=== PATIENT | female | born 1960 | race Caucasian/White ===

== ENCOUNTER 2018-09-12 21:33 | Emergency (ER) | payer OTHER ==
[2018-09-12] MEDS: FAMOTIDINE 20 MG TAB PO (22:58)
[2018-09-12] MEDS: CYCLOBENZAPRINE 10 MG TAB PO (22:58)
[2018-09-12] MEDS: KETOROLAC 30 MG INJ IM (23:01)
[2018-09-13] MEDS: NICARDipine HCL 30 MG CAPSULE PO (00:04)
[2018-09-13] MEDS: HYDROCODONE/APAP (5/325) TAB PO (00:04)
== END 2018-09-13 00:15 | disposition home or self-care (01) ==
LOC: FTE 21:33
DX: S10.93XA Contusion of unspecified part of neck, initial encounter (principal); S20.219A Contusion of unspecified front wall of thorax, initial encounter; S40.011A Contusion of right shoulder, initial encounter; V43.52XA Car driver injured in collision with other type car in traffic accident, initial encounter
CPT/HCPCS: 71046; 72040; 73030-RT; 96372; 99284-25

== ENCOUNTER 2018-10-20 12:48 | Inpatient (IN) | payer OTHER ==
[2018-10-20 14:23] LABS: ADD MAN DIFF? NO
[2018-10-20 14:24] LABS: WHITE BLOOD COUNT 9.3 10^3/ul (4.8-10.8)
[2018-10-20 14:24] LABS: BASOPHILS % 0.2 % (0.0-2.0); HEMATOCRIT 37.7 % (37.0-47.0); LYMPHOCYTES # 1.4 10^3/ul (0.8-2.9); LYMPHOCYTES % 15.1 % (15.0-51.0); MEAN CORPUSCULAR HEMOGLOBIN 26.9 pg (29.0-33.0); MEAN CORPUSCULAR HGB CONC 31.8 g/dl (32.0-37.0); MEAN CORPUSCULAR VOLUME 84.5 fl (82.0-101.0); MEAN PLATELET VOLUME 9.4 fl (7.4-10.4); MONOCYTE # 0.2 10^3/ul (0.3-0.9); MONOCYTES % 1.7 % (0.0-11.0); NEUTROPHIL # 7.7 10^3/ul (1.6-7.5); NEUTROPHILS % 82.5 % (39.0-77.0); PLATELET COUNT 313 10^3/UL (140-415); RED BLOOD COUNT 4.46 10^6/ul (4.20-5.40)
[2018-10-20] MEDS: ONDANSETRON 4 MG INJ IV (14:29)
[2018-10-20] MEDS: SOD CHLORIDE 0.9% 1,000 ML IV ×2 (14:29→19:57)
[2018-10-20] MEDS: LIDOCAINE/MYLANTA 40 ML BTL PO (14:29)
[2018-10-20] MEDS: BELLADONNA/PHENOBARBITAL TAB PO (14:29)
[2018-10-20] MEDS: KETOROLAC 15 MG INJ IV (14:37)
[2018-10-20 14:42] LABS: ALANINE AMINOTRANSFERASE 22 IU/L (13-69); ALBUMIN 4.6 g/dl (3.3-4.9); ALBUMIN/GLOBULIN RATIO 1.09; ALKALINE PHOSPHATASE 68 IU/L (42-121); ANION GAP 10 (5-13); ASPARTATE AMINO TRANSFERASE 24 IU/L (15-46); BILIRUBIN,INDIRECT 0.4 mg/dl (0-1.1); BILIRUBIN,TOTAL 0.4 mg/dl (0.2-1.3); BLOOD UREA NITROGEN 14 mg/dl (7-20); CALCIUM 10.3 mg/dl (8.4-10.2); CARBON DIOXIDE 27 mmol/L (21-31); CHLORIDE 103 mmol/L (97-110); CREATININE 0.69 mg/dl (0.44-1.00); Estimated GFR > 60 mL/min (>60); GLUCOSE 116 mg/dl (70-220); LIPASE 84 U/L (23-300); POTASSIUM 3.6 mmol/L (3.5-5.1); SODIUM 140 mmol/L (135-144); TOTAL PROTEIN 8.8 g/dl (6.1-8.1)
[2018-10-20] MEDS ORDERED: DOCUSATE SODIUM 100 MG CAP PO (18:30)
[2018-10-20] MEDS ORDERED: ACETAMINOPHEN 650 MG SUPP PR (18:30)
[2018-10-20] MEDS ORDERED: HYDROCODONE/APAP (5/325) TAB PO (18:30)
[2018-10-20] MEDS ORDERED: FAMOTIDINE 20 MG INJ IV (18:30)
[2018-10-20] MEDS ORDERED: ONDANSETRON 4 MG INJ IV (18:30)
[2018-10-20] MEDS ORDERED: NACL 0.9% 3 ML SYG IV (18:30)
[2018-10-20] MEDS ORDERED: ACETAMINOPHEN 325 MG TAB PO (18:30)
[2018-10-20] MEDS ORDERED: morphine 2 MG INJ IV (18:30)
[2018-10-20] MEDS ORDERED: BISACODYL 10 MG SUPP PR (18:30)
[2018-10-20] MEDS ORDERED: CIPROFLOXACIN 400MG/D5W 200 ML (19:35)
[2018-10-20] MEDS ORDERED: metroNIDAZOLE 500 MG/NS (PMX) 100 ML IVPB (19:35)
[2018-10-20] MEDS ORDERED: FAMOTIDINE 20 MG INJ (19:35)
[2018-10-20] MEDS: FAMOTIDINE 20 MG INJ IV (20:00)
[2018-10-20] MEDS: CIPROFLOXACIN 400MG/D5W 200 ML IVPB (20:02)
[2018-10-20] MEDS: metroNIDAZOLE 500 MG/NS (PMX) 100 ML IVPB (21:09)
[2018-10-21 05:06] LABS: ADD MAN DIFF? NO
[2018-10-21 05:11] LABS: BASOPHILS % 0.5 % (0.0-2.0); EOSINOPHILS # 0.1 10^3/ul (0.0-0.5); EOSINOPHILS % 1.7 % (0.0-7.0); HEMATOCRIT 32.6 % (37.0-47.0); HEMOGLOBIN 10.2 g/dl (12.0-16.0); LYMPHOCYTES # 2.8 10^3/ul (0.8-2.9); LYMPHOCYTES % 44.1 % (15.0-51.0); MEAN CORPUSCULAR HGB CONC 31.3 g/dl (32.0-37.0); MEAN CORPUSCULAR VOLUME 86.2 fl (82.0-101.0); MEAN PLATELET VOLUME 9.9 fl (7.4-10.4); MONOCYTE # 0.4 10^3/ul (0.3-0.9); MONOCYTES % 6.7 % (0.0-11.0); NEUTROPHILS % 46.8 % (39.0-77.0); PLATELET COUNT 249 10^3/UL (140-415); RED BLOOD COUNT 3.78 10^6/ul (4.20-5.40); RED CELL DISTRIBUTION WIDTH 14.3 % (11.5-14.5)
[2018-10-21 05:11] LABS: WHITE BLOOD COUNT 6.4 10^3/ul (4.8-10.8)
[2018-10-21 05:26] LABS: INR 1.03; PROTIME 13.6 Sec (11.9-14.9); PT RATIO 1.1
[2018-10-21 05:31] LABS: LIPASE 81 U/L (23-300)
[2018-10-21] MEDS: SOD CHLORIDE 0.9% 1,000 ML IV ×2 (05:39→12:28)
[2018-10-21] MEDS: metroNIDAZOLE 500 MG/NS (PMX) 100 ML IVPB (05:41)
[2018-10-21 05:42] LABS: ALANINE AMINOTRANSFERASE 19 IU/L (13-69); ALBUMIN 3.2 g/dl (3.3-4.9); ALBUMIN/GLOBULIN RATIO 1.03; ALKALINE PHOSPHATASE 52 IU/L (42-121); ANION GAP 4 (5-13); ASPARTATE AMINO TRANSFERASE 23 IU/L (15-46); BILIRUBIN,INDIRECT 0.5 mg/dl (0-1.1); BILIRUBIN,TOTAL 0.5 mg/dl (0.2-1.3); BLOOD UREA NITROGEN 11 mg/dl (7-20); CALCIUM 9.1 mg/dl (8.4-10.2); CARBON DIOXIDE 26 mmol/L (21-31); CHLORIDE 110 mmol/L (97-110); CHOL/HDL RATIO 3.6 RATIO; CHOLESTEROL 183 mg/dl (100-200); CREATININE 0.78 mg/dl (0.44-1.00); Estimated GFR > 60 mL/min (>60); GLUCOSE 95 mg/dl (70-220); HDL CHOLESTEROL 50 mg/dl (37-92); LDL CHOLESTEROL,CALCULATED 117 mg/dl; MAGNESIUM 2.1 mg/dl (1.7-2.5); PHOSPHORUS 3.3 mg/dl (2.5-4.9); POTASSIUM 3.5 mmol/L (3.5-5.1); SODIUM 140 mmol/L (135-144); TOTAL PROTEIN 6.3 g/dl (6.1-8.1); TRIGLYCERIDES 82 mg/dl (0-149)
[2018-10-21 06:03] LABS: THYROID STIMULATING HORMONE 0.441 MIU/L (0.465-4.680)
[2018-10-21 06:53] LABS: HEMOGLOBIN A1C 5.6 % (0-5.9)
[2018-10-21] MEDS: FAMOTIDINE 20 MG INJ IV (09:27)
[2018-10-21] MEDS: CIPROFLOXACIN 400MG/D5W 200 ML IVPB (09:28)
== END 2018-10-21 14:59 | disposition home or self-care (01) | DRG 446 ==
LOC: E/R 12:48 → PP2 16:39
DX: K80.20 Calculus of gallbladder without cholecystitis without obstruction (principal); E66.9 Obesity, unspecified; Z68.33 Body mass index [BMI] 33.0-33.9, adult; Z79.82 Long term (current) use of aspirin
CPT/HCPCS: 36415; 71045; 74176; 76705; 80053; 80061; 81025; 83036; 83690; 83735; 84100; 84443; 85025; 85610; 93005; 96374; 96375; 99285-25